=== PATIENT | male | born 1955 | race Caucasian/White ===

== ENCOUNTER 2018-05-26 13:52 | Outpatient (CLI) | payer BC ==
--- NOTE | 2018-05-26 15:47 | RAD ---
TWO VIEW CHEST: HISTORY: Pneumonia. COMPARISON: None. FINDINGS: The lungs appear well aerated. No definite infiltrate seen. Vascular markings are normal. Heart si ze is normal. IMPRESSION: No focal infiltrate. There are mild chronic parenchymal changes noted with some interstitial thicken ing and mild stranding. POS: [facility]
== END 2018-05-26 13:53 | disposition home or self-care (01) ==
LOC: BICRAD 13:52
PROVIDERS: ATTEND Family Medicine
DX: J18.9 Pneumonia, unspecified organism (principal); J98.4 Other disorders of lung
CPT/HCPCS: 71046